=== PATIENT | female | born 1990 | race Caucasian/White ===

== ENCOUNTER 2017-09-08 10:04 | Emergency (ER) | payer OTHER ==
[2017-09-08 10:14] VITALS: BP 100/65
--- NOTE | 2017-09-08 10:24 | UC ---
Throat Pain/Nasal Jaleel HPI - HPI Summary HPI Summary: 26 yo female ill x 1 week sinus pressure and pain post nasal drip eyes matted shut past 2 AMs no eye pain laryngitis x 2 days - History of Current Complaint Chief Complaint: UCGeneralIllness Stated Complaint: SORE THROAT SINUS ISSUE Time Seen by Provider: 09/08/17 10:11 Hx Obtained From: Patient Hx Last Menstrual Period: 08/19/17 Onset/Duration: Gradual Onset, Lasting Days Severity: Mild Pain Intensity: 2 Pain Scale Used: 0-10 Numeric Cough: Nonproductive Associated Signs & Symptoms: Positive: Hoarseness, Sinus Discomfort, Nasal Discharge - Epiglottits Risk Factors Epiglottis Risk Factors: Negative - Allergies/Home Medications Allergies/Adverse Reactions: Allergies Allergy/AdvReac Type Severity Reaction Status Date / Time Penicillins Allergy Rash Verified 09/08/17 10:09 Home Medications: Home Medications Amphetamine-Dextroamphetamine [Adderall 30 mg-] 1 tab PO DAILY 09/08/17 [ History Confirmed 09/08/17] FLUoxetine CAP* [PROzac CAP*] 80 mg PO DAILY 09/08/17 [History Confirmed ] buPROPion TAB* [Wellbutrin TAB*] 100 mg PO DAILY 09/08/17 [History Confirmed ] PMH/Surg Hx/FS Hx/Imm Hx Previously Healthy: Yes Cardiovascular History: Other Other Cardiovascular History: followed by cariologist for sinus tachycardia - Surgical History Surgical History: Yes Surgery Procedure, Year, and Place: wisdom teeth - Family History Known Family History: Negative: Cardiac Disease, Hypertension, Diabetes - Social History Alcohol Use: Rare Substance Use Type: None Smoking Status (MU): Never Smoked Tobacco - Immunization History Most Recent Tetanus Shot: UTD Review of Systems Constitutional: Fever - at onset Skin: Negative Eyes: Drainage, Eye Redness ENT: Sore Throat, Nasal Discharge, Sinus Congestion, Sinus Pain/Tenderness Respiratory: Negative Cardiovascular: Negative Gastrointestinal: Negative Genitourinary: Negative Motor: Negative Neurovascular: Negative Musculoskeletal: Negative Neurological: Negative Psychological: Negative Is Patient Immunocompromised?: No All Other Systems Reviewed And Are Negative: Yes Physical Exam Triage Information Reviewed: Yes Appearance: Well-Appearing, No Pain Distress, Well-Nourished Vital Signs: Initial Vital Signs Temp 98 F 09/08/17 10:11 Pulse 110 09/08/17 10:11 Resp 18 09/08/17 10:11 BP 100/65 09/08/17 10:11 Pulse Ox 99 09/08/17 10:11 Vital Signs Reviewed: Yes Eyes: Positive: Conjunctiva Inflamed ENT: Positive: Hearing grossly normal, Nasal congestion, Nasal drainage, TMs normal, Other: - hoarse/bilateral max sinus tenderness. Negative: Tonsillar exudate, Trismus Dental: Positive: Gross Decay/Caries @, Dental Fracture @, Abscess @ Neck: Positive: Supple, Nontender, No Lymphadenopathy Respiratory: Positive: Lungs clear, Normal breath sounds, No respiratory distress, No accessory muscle use Cardiovascular: Positive: RRR, No Murmur Musculoskeletal: Positive: ROM Intact, No Edema Neurological: Positive: Alert Psychological Exam: Normal Skin Exam: Normal Throat Pain/Nasal Course/Dx - Differential Dx/Diagnosis Provider Diagnoses: acute sinusitis. bilateral conjunctivitis Discharge - Discharge Plan Condition: Stable Disposition: HOME Prescriptions: Cefuroxime Axetil [Ceftin 250 MG] 250 mg PO BID #20 tab Polymyx/Trimethoprim OPTH* [Polytrim OPHTH*] 1 - 2 drop BOTH EYES QID #1 btl Patient Education Materials: Sinusitis (ED), Conjunctivitis (ED) Referrals: Yanet Kelley MD [Primary Care Provider] - 4 Days (if not improving) Additional Instructions: continue to use flonase you can also use saline nasal spray 2 sprays each nostril 2x day warm facial compresses
== END 2017-09-08 10:30 | disposition home or self-care (01) ==
LOC: UCEAST 10:04
DX: J01.90 Acute sinusitis, unspecified (principal); H10.9 Unspecified conjunctivitis; Z88.0 Allergy status to penicillin
CPT/HCPCS: 99212; G0463

== ENCOUNTER 2018-03-24 16:03 | Emergency (ER) | payer OTHER ==
[2018-03-24 16:16] VITALS: BP 111/77
--- NOTE | 2018-03-24 16:36 | UC ---
Back Pain HPI - HPI Summary HPI Summary: Pt presents with left upper back spasm that began yesterday. She tells me that she woke up yesterday and noticed her upper back was tight. Took ibuprofen with little relief. Had a massage today, which seemed to make her pain worse. Denies headache, dizziness, numbness, tingling, SOB, or chest pain. - History of Current Complaint Chief Complaint: UCBackPain Stated Complaint: BACK SPASMS Time Seen by Provider: 03/24/18 16:36 Hx Obtained From: Patient Hx Last Menstrual Period: 02/23/18 Onset/Duration: Sudden Onset Timing: Constant Severity Initially: Moderate Severity Currently: Severe Pain Intensity: 8 Pain Scale Used: 0-10 Numeric Character: Aching, Spasmodic Aggravating Factor(s): Movement, Lifting Alleviating Factor(s): Position, OTC Meds - Allergies/Home Medications Allergies/Adverse Reactions: Allergies Allergy/AdvReac Type Severity Reaction Status Date / Time MS Penicillins [Penicillins] Allergy Rash Verified 03/24/18 16:16 Home Medications: Home Medications Ibuprofen TAB* [Motrin TAB* 600 MG] 600 mg PO Q6HR PRN 03/24/18 [History Confirmed 03/24/18] Loratadine [Claritin 10 MG CAP] 10 mg PO DAILY 03/24/18 [History Confirmed 03/24] PMH/Surg Hx/FS Hx/Imm Hx - Additional Past Medical History Additional PMH: ADHD Previously Healthy: Yes Psychological History: Anxiety - Surgical History Surgical History: Yes Surgery Procedure, Year, and Place: wisdom teeth - Family History Known Family History: Negative: Cardiac Disease, Hypertension, Diabetes - Social History Occupation: Student Lives: With Family Alcohol Use: Rare Substance Use Type: None Smoking Status (MU): Never Smoked Tobacco - Immunization History Most Recent Tetanus Shot: UTD Review of Systems Constitutional: Negative Skin: Negative Respiratory: Negative Cardiovascular: Negative Gastrointestinal: Negative Neurovascular: Negative Musculoskeletal: Other: - Upper back pain Neurological: Negative Psychological: Negative All Other Systems Reviewed And Are Negative: Yes Physical Exam - Summary Physical Exam Summary: GENERAL: NAD. WDWN. No pain distress. SKIN: No rashes, sores, lesions, or open wounds. NECK: Supple. FROM. Nontender. No lymphadenopathy. CHEST: CTAB. No r/r/w. No accessory muscle use. Breathing comfortably and in no distress. CV: RRR. Without m/r/g. Pulses intact. Brisk cap refill. MSK: TTP over left trapezius. FROM of b/l UEs, but with reproduction of pain during left shoulder flexion >90deg. Strength 5/5 B/L UEs NEURO: Alert. CN II-XII grossly intact. Sensations intact B/L UEs C4-T1. PSYCH: Age appropriate behavior. Triage Information Reviewed: Yes Vital Signs: Initial Vital Signs Temp 98.6 F 03/24/18 16:10 Pulse 103 03/24/18 16:10 Resp 16 03/24/18 16:10 BP 111/77 03/24/18 16:10 Pulse Ox 97 03/24/18 16:10 Back Pain Course/Dx - Course Course Of Treatment: Suspect muscle spasm. 30mg toradol IM given in clinic. Rx for meloxicam and flexeril at bedtime. Apply heat. F/u if symptoms worsen or persist. - Differential Dx/Diagnosis Provider Diagnoses: Muscle spasm Discharge - Sign-Out/Discharge Documenting (check all that apply): Discharge/Admit/Transfer - Discharge Plan Condition: Stable Disposition: HOME Prescriptions: Cyclobenzaprine TAB* [Flexeril 10 MG TAB*] 10 mg PO BEDTIME PRN #10 tab PRN Reason: Pain Meloxicam 7.5 mg PO BID PRN #20 tab PRN Reason: Pain Patient Education Materials: Muscle Spasm (ED) Referrals: Yanet Kelley MD [Primary Care Provider] - Additional Instructions: If you develop a fever, shortness of breath, chest pain, new or worsening symptoms - please call your PCP or go to the ED. 1) Do not take ibuprofen in addition to the meloxicam as these medications are related and may interact. You can, however, still take tylenol if needed. 2) May try the Flexeril at bedtime as needed - Billing Disposition and Condition Condition: STABLE Disposition: HOME
[2018-03-24] MEDS ORDERED: Ketorolac INJ* 30 MG/ML 1 ML VIAL IM ONE (16:43)
== END 2018-03-24 17:03 | disposition home or self-care (01) ==
LOC: UCEAST 16:03
DX: M62.830 Muscle spasm of back (principal); F90.9 Attention-deficit hyperactivity disorder, unspecified type; Z88.0 Allergy status to penicillin
CPT/HCPCS: 99212; G0463; J1885

== ENCOUNTER 2019-05-28 08:58 | Emergency (ER) | payer OTHER ==
[2019-05-28 09:04] VITALS: BP 104/68
--- NOTE | 2019-05-28 09:40 | UC ---
Back Pain HPI - HPI Summary HPI Summary: 2 days ago felt L upper back spasm. Difficult to sleep and do certain movements. denies fall but does remember sleeping on bed that was very uncomfortable. denies injury or dv. - History of Current Complaint Chief Complaint: UCBackPain Stated Complaint: MUSCLE SPASM IN THE BACK Time Seen by Provider: 05/28/19 09:35 Hx Obtained From: Patient Hx Last Menstrual Period: 04/28/19 Pain Intensity: 8 Pain Scale Used: 0-10 Numeric Aggravating Factor(s): Movement Alleviating Factor(s): Rest - Allergies/Home Medications Allergies/Adverse Reactions: Allergies Allergy/AdvReac Type Severity Reaction Status Date / Time Penicillins Allergy Rash Verified 05/28/19 09:00 PMH/Surg Hx/FS Hx/Imm Hx Previously Healthy: Yes Psychological History: Depression, Other - adhd - Surgical History Surgical History: Yes Surgery Procedure, Year, and Place: wisdom teeth - Family History Known Family History: Negative: Cardiac Disease, Hypertension, Diabetes - Social History Alcohol Use: Rare Substance Use Type: None Smoking Status (MU): Never Smoked Tobacco - Immunization History Most Recent Tetanus Shot: UTD Review of Systems All Other Systems Reviewed And Are Negative: Yes Constitutional: Positive: Negative Skin: Positive: Negative Respiratory: Positive: Negative Cardiovascular: Positive: Negative Musculoskeletal: Positive: Arthralgia - back pain. Negative: Myalgia Neurological: Negative: Headache Physical Exam Triage Information Reviewed: Yes Appearance: Well-Appearing Vital Signs: Initial Vital Signs Temp 98 F 05/28/19 09:02 Pulse 110 05/28/19 09:02 Resp 20 05/28/19 09:02 BP 104/68 05/28/19 09:02 Pulse Ox 100 05/28/19 09:02 Vital Signs Reviewed: Yes Neck: Positive: Supple Respiratory Exam: Normal Cardiovascular Exam: Normal Musculoskeletal: Positive: Strength Intact - L shoulder, ROM Intact - neck, L shoulder. Pain w/ specific movements. Neg lift off test., Other: - left SITS muscles tight but good ROM of L shoulder. Back Pain Course/Dx - Course Course Of Treatment: Acute L upper back spasm. No neuro deficits. Exam significant for pain w/ certain movements. muscle relaxer for now and advised warm compress throughout the day. istop reviewed:[id number] no concerning rx. - Differential Dx/Diagnosis Differential Diagnosis/HQI/PQRI: Herniated Disc, Strain, Sprain Provider Diagnosis: Muscle spasm Discharge - Sign-Out/Discharge Documenting (check all that apply): Patient Departure All imaging exams completed and their final reports reviewed: No Studies - Discharge Plan Condition: Good Disposition: HOME Prescriptions: Cyclobenzaprine (NF) [Cyclobenzaprine 5 MG (NF)] 5 mg PO TID PRN 5 Days #15 tab PRN Reason: Spasms - Muscle Patient Education Materials: Muscle Spasm (ED) Referrals: Yanet Kelley MD [Primary Care Provider] - Additional Instructions: If worsening please return to the urgent care - Billing Disposition and Condition Condition: GOOD Disposition: Home
== END 2019-05-28 10:00 | disposition home or self-care (01) ==
LOC: UCEAST 08:58
DX: M62.830 Muscle spasm of back (principal); Z88.0 Allergy status to penicillin
CPT/HCPCS: 99212; G0463

== ENCOUNTER 2019-08-26 11:21 | Emergency (ER) | payer OTHER ==
--- NOTE | 2019-08-26 11:35 | UC ---
Eye Complaint HPI - HPI Summary HPI Summary: 28 yo female presents with b/l eye drainage and itching. She tells me that over the last 3 days she has noticed b/l clear/yellowish eye drainage and wakes with her eyes crusted shut. Eyes are very itchy. She has been using OTC saline eye drops, which helps during the day and relieves the itch - but the drainage is still present. She denies fever, chills, sinus symptoms, cough, vision changes. She does wear contacts sometimes, but has not in about a week. - History of Current Complaint Stated Complaint: EYE ISSUE Time Seen by Provider: 08/26/19 11:35 Hx Obtained From: Patient Hx Last Menstrual Period: 04/28/19 Onset/Duration: Gradual Onset Severity Initially: Mild Severity Currently: Mild Pain Intensity: 3 Pain Scale Used: 0-10 Numeric - Allergies/Home Medications Allergies/Adverse Reactions: Allergies Allergy/AdvReac Type Severity Reaction Status Date / Time Penicillins Allergy Rash Verified 05/28/19 09:00 PMH/Surg Hx/FS Hx/Imm Hx - Additional Past Medical History Additional PMH: ADHD Anxiety Depression - Surgical History Surgical History: Yes Surgery Procedure, Year, and Place: wisdom teeth - Family History Known Family History: Positive: Non-Contributory Negative: Cardiac Disease, Hypertension, Diabetes - Social History Lives: With Family Alcohol Use: Rare Substance Use Type: None Smoking Status (MU): Never Smoked Tobacco - Immunization History Most Recent Tetanus Shot: UTD Review of Systems All Other Systems Reviewed And Are Negative: No Constitutional: Positive: Negative Skin: Positive: Negative Eyes: Positive: Drainage, Eye Redness ENT: Positive: Negative Respiratory: Positive: Negative Cardiovascular: Positive: Negative Neurological: Positive: Negative Psychological: Positive: Negative Physical Exam - Summary Physical Exam Summary: GENERAL: WDWN. No pain distress. SKIN: No rashes, sores, lesions, or open wounds. HEENT: Head: AT/NC Eyes: EOM intact. PERRLA. B/L EYES: Mild scleral injection. Conjunctiva with mild erythema and inflammation. Mild clear/yellow discharge. No FBs appreciated Nose: NTTP maxillary and frontal sinus. NECK: Supple. Nontender. No lymphadenopathy. CHEST: No accessory muscle use. Breathing comfortably and in no distress. CV: Pulses intact. Cap refill <2seconds NEURO: Alert. PSYCH: Age appropriate behavior. Triage Information Reviewed: Yes Vital Signs: Vital Signs: Temp Pulse Resp BP Pulse Ox 99.5 F 97 18 110/71 99 08/26/19 11:32 08/26/19 11:32 08/26/19 11:32 08/26/19 11:32 08/26/19 11:32 Vital Signs Reviewed: Yes Eye Complaint Course/Dx - Course Course Of Treatment: Conjunctivitis. - Differential Dx/Diagnosis Provider Diagnosis: Conjunctivitis Discharge ED - Sign-Out/Discharge Documenting (check all that apply): Patient Departure All imaging exams completed and their final reports reviewed: No Studies - Discharge Plan Condition: Stable Disposition: HOME Prescriptions: Ofloxacin 0.3% (Eye Drop) [Ocuflox OPTH 0.3% (Eye Drop)] 1 drop BOTH EYES QID # 1 btl Patient Education Materials: Conjunctivitis (ED) Referrals: Yanet Kelley MD [Primary Care Provider] - Additional Instructions: If you develop a fever, shortness of breath, chest pain, new or worsening symptoms - please call your PCP or go to the ED immediately. Do not wear your contacts until your symptoms have completely resolved - Billing Disposition and Condition Condition: STABLE Disposition: Home - Attestation Statements Provider Attestation: I was available for consult. This patient was seen by the LORNA. The patient was not presented to, seen by, or examined by me. -Linda
[2019-08-26 11:36] VITALS: BP 110/71
== END 2019-08-26 11:54 | disposition home or self-care (01) ==
LOC: UCEAST 11:21
DX: H10.9 Unspecified conjunctivitis (principal); Z88.0 Allergy status to penicillin; F90.9 Attention-deficit hyperactivity disorder, unspecified type
CPT/HCPCS: 99212; G0463

== ENCOUNTER 2020-01-16 15:45 | Emergency (ER) | payer OTHER ==
[2020-01-16 15:52] VITALS: BP 109/67
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
== END 2020-01-16 16:55 | disposition home or self-care (01) ==
LOC: UCEAST 15:45
DX: T74.11XA Adult physical abuse, confirmed, initial encounter (principal); S20.211A Contusion of right front wall of thorax, initial encounter; Z88.0 Allergy status to penicillin; F41.9 Anxiety disorder, unspecified; F32.9 Major depressive disorder, single episode, unspecified; Z79.899 Other long term (current) drug therapy; Y07.499 Other family member, perpetrator of maltreatment and neglect; Y92.9 Unspecified place or not applicable
CPT/HCPCS: 81003; 84702; 87077; 87086; 87186; 99212; G0463